=== PATIENT | male | born 1970 ===

== ENCOUNTER 2021-02-18 18:07 | Inpatient (IN) | payer OTHER ==
[~2021-02-18] VITALS: Ht 182.9 cm; Wt 79.4 kg
[2021-02-18] MEDS ORDERED: levETIRAcetam IV 500 MG in IV DEXTROSE 5% 100 ML IV ONE (18:30)
[2021-02-18] MEDS ORDERED: LORAZEPAM 2 MG/1 ML VIAL ONE ×3 (18:35→19:33)
[2021-02-18] MEDS ORDERED: IV NORMAL SALINE 1000 ML BAG IV ONE (18:45)
[2021-02-18] MEDS ORDERED: levETIRAcetam IV 2,000 MG in IV DEXTROSE 5% 100 ML IV ONE (19:00)
[2021-02-18] MEDS ORDERED: LORAZEPAM 2 MG/1 ML VIAL IV ONE ×3 (19:00→19:30)
[2021-02-18] MEDS ORDERED: LEVE500T9 PO (19:11)
[2021-02-18 19:16] LABS: HEMATOCRIT 36.2 % (36.7-47.1); MEAN CORPUSCULAR HEMOGLOBIN 30.8 uug (23.8-33.4); MEAN CORPUSCULAR VOLUME 95.4 fL (73.0-96.2); PLATELET COUNT (AUTO) 101 K/uL (152-348)
[2021-02-18 19:26] LABS: ETHANOL 61 MG/DL (0-0)
[2021-02-18 19:29] LABS: CARBON DIOXIDE 17 mmol/L (21-32); CHLORIDE 98 mmol/L (98-107); CREATININE 1.1 mg/dL (0.6-1.3); GLUCOSE 118 mg/dL (74-106); POTASSIUM 4.1 mmol/L (3.5-5.1); UREA NITROGEN, BLOOD 7 mg/dL (7-18)
[2021-02-18 19:34] LABS: ALANINE AMINOTRANSFERASE 28 U/L (16-63); ALKALINE PHOSPHATASE 171 U/L (50-136); ASPARTATE AMINOTRANSFERASE 51 U/L (15-37); BILIRUBIN,DIRECT 0.1 mg/dL (0.0-0.2); BILIRUBIN,TOTAL 0.2 mg/dL (0.2-1.0); PHENOBARBITAL < 1.0 ug/mL (15.0-39.0); PHENYTOIN (DILANTIN) < 0.5 ug/mL (10.0-20.0); TOTAL PROTEIN, SERUM 7.2 g/dL (6.4-8.2)
--- NOTE | 2021-02-18 20:00 | NUR ---
Patient appears to be in disheveled condition, and soiled himself and his clothes. Patient was offered a bed bath and change of gown and bedding. Patient was cleansed, and placed with fresh sheets and gown.
[2021-02-18] MEDS ORDERED: levETIRAcetam IV 1,000 MG in IV DEXTROSE 5% 100 ML IV SCH (21:00)
--- NOTE | 2021-02-18 21:25 | NUR ---
Patient is resting comfortably in bed with eyes closed, no acute distress noted.
[2021-02-18] MEDS ORDERED: hydrALAZINE HCL 20 MG/1 ML VIAL IV PRN (22:00)
[2021-02-18] MEDS: IV NS 1000 ML 1,000 ML IV SCH ×2 (22:00→23:45)
[2021-02-18] MEDS ORDERED: MORPHINE SULFATE 2 MG/1 ML DISP.SYRIN IV PRN (22:00)
[2021-02-18] MEDS ORDERED: LABETALOL HCL 100 MG/20 ML VIAL IV PRN (22:00)
[2021-02-18 22:29] LABS: VALPROIC ACID < 3 ug/mL (50-100)
--- NOTE | 2021-02-18 22:46 | NUR ---
[facility] transfer continuous pillowcase cutter called for verbal clinicals, was provided. May request doctor to doctor later.
--- NOTE | 2021-02-18 23:10 | NUR ---
Patient not cooperative when I ask him to straighten his arm to let the IV line flow better.
--- NOTE | 2021-02-18 23:12 | NUR ---
[facility] stated they will be declining transfer d/t lack of beds at their facility. Patient will be staying here at [facility].
--- NOTE | 2021-02-18 23:14 | NUR ---
Nursing checking department supervisor stated that the patient cannot be transferred upstairs d/t lack of nurses to accept the patient. Will be on stand-by waiting for room availability for patient.
--- NOTE | 2021-02-18 23:30 | NUR ---
Patient is resting comfortably in bed with eyes closed, no acute distress noted.
[2021-02-18] MEDS ORDERED: DIAZEPAM 2 MG TABLET PO SCH (23:45)
[2021-02-18] MEDS ORDERED: ONDANSETRON 4 MG/2 ML VIAL IV PRN (23:45)
[2021-02-18] MEDS ORDERED: LORAZEPAM 2 MG/1 ML VIAL IV PRN (23:45)
[2021-02-18] MEDS ORDERED: ACETAMINOPHEN 325 MG TABLET PO PRN (23:45)
[2021-02-19 00:05] LABS: CREATININE 0.8 mg/dL (0.6-1.3); POTASSIUM 4.1 mmol/L (3.5-5.1)
[2021-02-19 00:11] LABS: BILIRUBIN,TOTAL 0.5 mg/dL (0.2-1.0); TOTAL PROTEIN, SERUM 6.6 g/dL (6.4-8.2)
[2021-02-19] MEDS ORDERED: DIAZEPAM 5 MG TABLET ONE (02:00)
--- NOTE | 2021-02-19 02:00 | NUR ---
Patient is resting comfortably in bed with eyes closed, no acute distress noted.
--- NOTE | 2021-02-19 04:00 | NUR ---
Patient is resting comfortably in bed with eyes closed, no acute distress noted.
--- NOTE | 2021-02-19 05:26 | NUR ---
Called to check in if there are any rooms avaliable for the patient. Per RN Clinical Counselor and LIBERTAD Lion, the 3rd floor is currently maxed out on ratios.
[2021-02-19 05:29] LABS: HEMATOCRIT 33.4 % (36.7-47.1); MEAN CORPUSCULAR HEMOGLOBIN 31.3 uug (23.8-33.4); MEAN CORPUSCULAR VOLUME 92.7 fL (73.0-96.2); PLATELET COUNT (AUTO) 77 K/uL (152-348)
--- NOTE | 2021-02-19 05:30 | NUR ---
Patient dislodged his 20g L AC angiocath, placed with new 20g R forearm angiocath.
[2021-02-19 05:52] LABS: BILIRUBIN,TOTAL 0.7 mg/dL (0.2-1.0); CREATININE 0.7 mg/dL (0.6-1.3); PHOSPHOROUS 3.2 mg/dL (2.5-4.9); POTASSIUM 3.9 mmol/L (3.5-5.1); TOTAL PROTEIN, SERUM 6.6 g/dL (6.4-8.2)
[2021-02-19] MEDS ORDERED: LABETALOL HCL 100 MG/20 ML VIAL ONE (05:54)
[2021-02-19] MEDS ORDERED: CLINDAMYCIN 900MG/D5W 100ML IVPB **ER PYXIS ONLY IJ ONE (05:55)
--- NOTE | 2021-02-19 05:55 | NUR ---
Noted patient BP to be 161/81, administered labetalol hydrochloride 10mg per PRN orders. BP decreased to 141/79.
[2021-02-19] MEDS: CLINDAMYCIN PHOSPHATE IV 900 MG in IV DEXTROSE 5% 100 ML IV SCH ×3 (06:00→21:00)
[2021-02-19 06:07] LABS: BAND % (MANUAL) 2 % (0-10); EOSINOPHILS % (MANUAL) 1 % (0-8); LYMPHOCYTES % (MANUAL) 24 % (20-40); MONOCYTES % (MANUAL) 14 % (2-10); NEUTROPHILS % (MANUAL) 59 % (42-75)
--- NOTE | 2021-02-19 06:14 | NUR ---
LIBERTAD Landeros called to state patient will be assigned to telemetry room 301A, the hospitalist currently assigned to the patient is Monet.
--- NOTE | 2021-02-19 07:07 | NUR ---
Hands off report given to Sandra MAURER.
--- NOTE | 2021-02-19 07:18 | NUR ---
Pt asleep but easily arousable, A/O X2. Pt states he has no allergies. Incontinant of BM. Urine collected and sent to LAB.
[2021-02-19 08:47] LABS: *BILIRUBIN,URIN 1+ (NEGATIVE); *BLOOD, URINE 3+ (NEGATIVE); *COLOR,URINE DARK YELLOW (YELLOW); *KETONES,URINE 2+ (NEGATIVE); *UROBILINOGEN,URINE 0.2 E.U./dl (NORMAL); LEUKOCYTE ESTERASE ,URINE NEGATIVE (NEGATIVE); NITRITE, URINE NEGATIVE (NEGATIVE); UGLUCOSE NEGATIVE (NEGATIVE)
[2021-02-19] MEDS ORDERED: levETIRAcetam IV 1,000 MG in IV DEXTROSE 5% 100 ML IV SCH (09:00)
[2021-02-19] MEDS ORDERED: DIAZEPAM 10 MG TABLET PO SCH (09:00)
--- NOTE | 2021-02-19 09:00 | NUR ---
valium not given, patient was still in ER
[2021-02-19 09:06] LABS: *AMPHETAMINE, URINE NEGATIVE (NEGATIVE); *CANNABINOID, URINE NEGATIVE (NEGATIVE); *COCCAINE, URINE NEGATIVE (NEGATIVE); *OPIATE, URINE NEGATIVE (NEGATIVE); *PHENCYCLIDINE SCREEN,URINE NEGATIVE (NEGATIVE)
--- NOTE | 2021-02-19 10:00 | NUR ---
Pt alert and oriented x4 IV on right FA intact and flushing without any difficultly. Excoriation on Left HIP redness, Left forearm blister, right eye swelling and bruising noted. Seizure precaution implemented side rails wrapped with seizure pads. Tele SNR. Pt denies any c/o pain. Fall precaution implemented. Call light is within reach.
[2021-02-19 11:50] VITALS: BP 162/58
[2021-02-19] MEDS: DIAZEPAM 10 MG TABLET PO SCH ×2 (12:32→17:03)
[2021-02-19] MEDS: IV NS 1000 ML 1,000 ML IV SCH ×2 (12:33→15:45)
[2021-02-19 14:46] LABS: *CLARITY,URINE HAZY (CLEAR)
[2021-02-19 14:47] LABS: BACTERIA,URINE FEW /HPF (NONE SEEN); SQUAMOUS EPITHELIAL CELL,UR FEW /HPF (NONE SEEN); URINE AMORPHOUS URATE MANY /HPF; WBC,URINE 0-3 /HPF (0-3)
[2021-02-19 16:00] VITALS: BP 130/79
--- NOTE | 2021-02-19 16:25 | NUR ---
nS HANGED 2 HRS EARLIER
[2021-02-19] MEDS ORDERED: DIAZEPAM 5 MG TABLET PO SCH (17:00)
--- NOTE | 2021-02-19 18:00 | NUR ---
No seizure noted this shift. Pt is in no acute distress.
[2021-02-19 20:00] VITALS: BP 109/75
[2021-02-19] MEDS: levETIRAcetam 500 MG TABLET PO SCH (20:48)
[2021-02-19] MEDS ORDERED: CHLORDIAZEPOXIDE HCL 25 MG CAPSULE PO SCH (21:00)
--- NOTE | 2021-02-19 22:10 | NUR ---
Patient alert and able to make needs known.On RA.No s/s of distress noted.Ambulates to bathroom.IV on right FA .No s/s of infiltration with IVF running at 125cc/hr.Tolerated well. Continue on seizure precaution. Due meds given and adm.IV ATB .No a/r noted. Patient c/o lower back pain and left hip pain. Medicated with Morphine with good effect.Will continue to monitor.
[2021-02-20] VITALS: BP 155/81
[2021-02-20 04:00] VITALS: BP 168/78
[2021-02-20] MEDS: CLINDAMYCIN PHOSPHATE IV 900 MG in IV DEXTROSE 5% 100 ML IV SCH ×2 (05:25→13:24)
[2021-02-20 06:04] LABS: HEMATOCRIT 32.5 % (36.7-47.1); MEAN CORPUSCULAR HEMOGLOBIN 30.6 uug (23.8-33.4); MEAN CORPUSCULAR VOLUME 94.1 fL (73.0-96.2); PLATELET COUNT (AUTO) 70 K/uL (152-348)
[2021-02-20 06:25] LABS: CREATININE 0.8 mg/dL (0.6-1.3); MAGNESIUM 1.9 mg/dL (1.8-2.4); PHOSPHOROUS 3.4 mg/dL (2.5-4.9); POTASSIUM 3.4 mmol/L (3.5-5.1)
[2021-02-20] MEDS: levETIRAcetam 500 MG TABLET PO SCH (08:03)
[2021-02-20] MEDS: DIAZEPAM 5 MG TABLET PO SCH ×2 (08:03→12:35)
--- NOTE | 2021-02-20 10:46 | NUR ---
WOUND CARE CONSULT: PT PRESENTS WITH RT HIP STAGE 2 ULCER AND LEFT HIP AREA OF SKIN TEARING WITH EXCORIATION, PRESENT ON ADMISSION. PT STATES WAS PREVIOUSLY SLEEPING ON FLOOR OF A VAN. RECOMMENDATIONS MADE FOR SKIN PROTECTION AND WOUND CARE. DISCUSSED WITH NURSING STAFF. IN AGREEMENT WITH PLAN OF CARE. Addendum: 02/20/21 at 1048 by MARY ANN ALEX RN Amended: Links added.
[2021-02-20] MEDS ORDERED: POTASSIUM CHLORIDE 20 MEQ TAB.PRT.SR PO ONE (11:00)
[2021-02-20 12:00] VITALS: BP 116/64
[2021-02-20] MEDS ORDERED: DIAZ5TAB4 PO (12:55)
[2021-02-20] MEDS ORDERED: CLIN300C3 PO (12:55)
[2021-02-20] MEDS ORDERED: LEVE500T9 PO (12:55)
[2021-02-20 14:26] LABS: EOSINOPHILS % (MANUAL) 8 % (0-8); LYMPHOCYTES % (MANUAL) 29 % (20-40); MONOCYTES % (MANUAL) 18 % (2-10); NEUTROPHILS % (MANUAL) 45 % (42-75)
--- NOTE | 2021-02-20 15:17 | NUR ---
dc orders received noted and carried out,dc heplock per md orders..dc instruction and education given to the pt .pt said he will follow up with his pcp in one week.pt left the facility via texi in proper clothing and in stable condition
[2021-02-20] MEDS ORDERED: DIAZEPAM 5 MG TABLET PO SCH (17:00)
[2021-02-20] MEDS ORDERED: CLINDAMYCIN HCL 300 MG CAPSULE PO SCH (18:00)
[2021-02-21] MEDS ORDERED: DIAZEPAM 5 MG TABLET PO SCH (09:00)
[2021-02-21] MEDS ORDERED: DIAZEPAM 5 MG TABLET PO ONE (17:00)
[2021-02-22] MEDS ORDERED: DIAZEPAM 5 MG TABLET PO SCH (09:00)
== END 2021-02-20 15:20 | disposition home or self-care (01) | DRG 775 ==
LOC: ER 18:10 → TELE3 02-19 08:37
PROVIDERS: ADMIT Internal Medicine; ATTEND Nurse Practitioner Acute Care
DX: F10.239 Alcohol dependence with withdrawal, unspecified (principal); E87.2 Acidosis; D69.59 Other secondary thrombocytopenia; L03.115 Cellulitis of right lower limb; E88.09 Other disorders of plasma-protein metabolism, not elsewhere classified; D64.9 Anemia, unspecified; S00.11XA Contusion of right eyelid and periocular area, initial encounter; G40.509 Epileptic seizures related to external causes, not intractable, without status epilepticus; Y90.3 Blood alcohol level of 60-79 mg/100 ml; X58.XXXA Exposure to other specified factors, initial encounter; Y93.9 Activity, unspecified; Y92.89 Other specified places as the place of occurrence of the external cause; Z91.19 Patient's noncompliance with other medical treatment and regimen; G40.909 Epilepsy, unspecified, not intractable, without status epilepticus; Z20.822 Contact with and (suspected) exposure to COVID-19; Z59.0 Homelessness
CPT/HCPCS: 36415; 70030-TC; 70450; 71045; 72125; 80164; 80184; 83605; 83735; 84100; 85025; 85651; 85730; 86140; 87040; 93005; 97161; G0378; G0480; J1953; J2060; J2270; J3490; J7030; J7040; J7060